=== PATIENT | female | born 1965 | race Caucasian/White ===

== ENCOUNTER 2020-06-14 07:07 | Emergency (ER) | payer OTHER ==
[2020-06-14 07:28] VITALS: BP 156/87; PULSE 84; TEMP 97.9; BMI 35.9
[2020-06-14] MEDS ORDERED: KETOROLAC TROMETHAMINE 60 MG/2 ML VIAL IM ONE (07:29)
[2020-06-14] MEDS ORDERED: KETOROLAC TROMETHAMINE 30 MG/1 ML VIAL ONE (07:29)
== END 2020-06-14 07:44 | disposition home or self-care (01) ==
LOC: FER 07:07
PROC: 3E0233Z Introduction of Anti-inflammatory into Muscle, Percutaneous Approach (ICD-10-PCS; principal; 2020-06-14)
DX: M54.2 Cervicalgia (principal)
CPT/HCPCS: 99284-25

== ENCOUNTER 2023-04-05 23:11 | Emergency (ER) | payer OTHER ==
[2023-04-05 23:20] VITALS: BP 139/76; PULSE 92; RESP 18; TEMP 97.9; BMI 33.0
[2023-04-06] MEDS ORDERED: KETOROLAC TROMETHAMINE 60 MG/2 ML VIAL IM ONE (03:20)
[2023-04-06] MEDS ORDERED: KETOROLAC TROMETHAMINE 60 MG/2 ML VIAL ONE (03:21)
== END 2023-04-06 04:03 | disposition home or self-care (01) ==
LOC: FER 23:11
PROC: 3E0233Z Introduction of Anti-inflammatory into Muscle, Percutaneous Approach (ICD-10-PCS; principal; 2023-04-06)
DX: S80.02XA Contusion of left knee, initial encounter (principal); W18.39XA Other fall on same level, initial encounter
CPT/HCPCS: 73560-TC-LT-FY; 99284-25

== ENCOUNTER 2023-12-22 07:06 | Emergency (ER) | payer OTHER ==
[2023-12-22 07:19] VITALS: BP 131/80; PULSE 94; RESP 18; TEMP 98.1; BMI 33.8
[2023-12-22] MEDS ORDERED: ALBUTEROL SO4 2.5/IPRATROPIUM 0.5 INH SOL 3 ML VIAL.NEB. NEB ONE (07:42)
[2023-12-22] MEDS: ALBUTEROL SO4 2.5/IPRATROPIUM 0.5 INH SOL 3 ML VIAL.NEB. NEB ONE (07:55)
== END 2023-12-22 09:20 | disposition home or self-care (01) ==
LOC: FER 07:06
PROC: 3E0F7GC Introduction of Other Therapeutic Substance into Respiratory Tract, Via Natural or Artificial Opening (ICD-10-PCS; principal; 2023-12-22)
DX: J40 Bronchitis, not specified as acute or chronic (principal); R09.82 Postnasal drip; R05.9 Cough, unspecified; R09.81 Nasal congestion
CPT/HCPCS: 71046-TC-FY; 99283-25